=== PATIENT | female | born 1970 | race Caucasian/White ===

== ENCOUNTER 2023-04-01 06:10 | Day surgery (SDC) | payer OTHER, SELFPAY ==
--- NOTE | 2023-03-31 11:58 | WPDANESEPPF ---
Anes - Initial Pre Proc Eval Procedure: Operation Date: 04/01/23 07:30 Proposed Procedures p Bilateral Breast Augmentation Mammoplasty - David Sorto MD Date/Time: 03/31/23 11:58 Surgeon: David Sorto MD Pre Op Diagnosis: Micromastia Patient Data Age: 52 Gender: F Height: 1.63 m Weight: 54.5 kg Allergies Allergy/AdvReac Type Severity Reaction Status Date / Time No Known Allergies Allergy Verified 04/01/23 06:25 Home Medications Medication Instructions Recorded Confirmed Type dextroamphetamine-amphetamine 10 10 mg PO DAILY 03/15/23 04/01/23 History mg tablet norethindrone 1 mg-ethinyl 1 tablet PO DAILY 03/15/23 04/01/23 History estradiol 20 mcg (21)-iron 75 mg (7) tablet trazodone 100 mg tablet 100 mg PO HS 03/15/23 04/01/23 History venlafaxine 75 mg capsule,extended 75 mg PO DAILY 03/15/23 04/01/23 History release 24 hr docusate sodium 100 mg capsule 100 mg PO BID 04/01/23 04/01/23 History ondansetron HCl 4 mg tablet 4 mg PO Q6-8H 04/01/23 04/01/23 History oxycodone-acetaminophen 5 mg-325 1 tablet PO Q6-8H PRN Pain 04/01/23 04/01/23 History mg tablet Patient hx anesthesia problems: none Family hx anesthesia problems: none Results Review: All pre-operative results and documents have been reviewed as part of the pre-operative evaluation. [facility] Past Medical History Medical History (Updated 03/31/23 @ 11:58 by Jairo Palmer DO) ADHD Anxiety Depression Social History Social History Smoking status: Never smoker Second hand tobacco smoke exposure: No Alcohol intake: current Alcohol use details: nightly wine Substance use: never Substance use type: does not use Living arrangements: with family Spiritual care concerns: No Anes - Eval Final PreProcedure Day of Procedure 03/31/23 11:58 Patient weight: normal Heart: regular rate and rhythm Lungs: clear to auscultation Airway: Mallampati scale class II Neurological: alert and oriented Last oral intake: >/= 8 hours ASA classification: II Emergent: no Anesthetic plan: proceed Anesthesia type and monitoring: general LMA and standard monitoring Results Review: All pre-operative results and documents have been reviewed as part of the pre-operative evaluation. Informed Consent: The patient's anesthetic plan and its attendant risks and benefits were discussed with the patient/family/POA. Questions were solicited and answers provided to the satisfaction of the patient/family/POA.
[2023-04-01] VITALS (9 sets, daily range): BP systolic 107–131; BP diastolic 64–86; PULSE 70–98; RESP 12–16; TEMP 36.3–36.8; O2SAT 97–100
[2023-04-01] MEDS: LACTATED RINGERS 1,000 ML 30 ML IV CONT ×2 (06:53→08:36)
[2023-04-01] MEDS: SCOPOLAMINE 1.5 MG PATCH TRANSDERM (07:00)
--- NOTE | 2023-04-01 07:00 | WPDHPUPDATE1 ---
History and Physical Update Update Date/Time: 04/01/23 07:00 History and Physical has been reviewed, including an updated exam of the patient. There are NO changes in the patient's condition. Risks, benefits, and alternatives have been discussed and questions answered. Patient agrees to proceed with procedure.
--- NOTE | 2023-04-01 07:04 | SUR.PREOP ---
500cc fluid bolus given in pre-op per Dr. Macario anderson
--- NOTE | 2023-04-01 07:07 | W.PM.PROC2 ---
Procedure Note - Detailed Date of Procedure 04/01/23 Pre-op Diagnosis Micromastia Post-op Diagnosis Same Procedure Performed Bilateral Augmentation Mammaplasty Surgeon David Sorto MD Anesthesia General Findings Bilateral Lizy Saline implants 300cc filled to 330cc Right - REF# [id number] filled to 330cc SN [id number] Left - REF# [id number] filled to 330cc SN [id number] Description of Procedure She is here today for bilateral breast augmentation. Previously and again today the risks, benefits, alternatives were discussed in extensive detail. I wanted her to be very realistic about the risks involved as well as expectations. We discussed aftercare and what to monitor for. Made sure answered all of her questions to her satisfaction today and consent was obtained. Marked in the preoperative holding area with their verification. The patient was taken to the operating room placed supine on the operating table. Anesthesia was provided by anesthesiology. A surgical time-out was taken. We cleansed the skin and 1% lidocaine and 0.25% Marcaine with epinephrine was used anesthetize as a field block. She was prepped and draped in a standard sterile fashion. Tegaderm nipple Dickinson were placed. A 15 blade used to make an incision along the inframammary fold. Dissection was continued at 45 degree angle until the chest wall as identified. I incised the pectoralis major along its inferior border and completely released the inferior border leaving the medial border intact. I created a subpectoral pocket in the appropriate dimensions based on our preoperative planning for the implant. I then copiously irrigated with saline solution and verified a strict hemostasis. Next the use a triple antibiotic and Betadine containing solution to irrigate the pocket. I washed my gloves with the triple antibiotic and Betadine solution. We washed the implant immediately upon opening it with this solution and only opened it when we needed it. On the back table air was removed from the implant. Introduced into the pocket and filled with a saline fill kit to the volume above. Having verified positioning of the implant this was closed using 2-0 PDS followed by 3-0 Monocryl in a running subcuticular 4-0 Monocryl followed by tissue glue. Fluffs and surgical bra were placed. Patient was awoke and taken to PACU without difficulty. All instrument sponge counts were correct at the end of the case. Estimated Blood Loss 25 Drains No Packing No Pathology None sent Complications No immediate complications Condition Stable Disposition PACU
--- NOTE | 2023-04-01 07:10 | SUR.PREOP ---
Dr. Sorto at bedside to vel Pt. RN, Yadi and spouse at bedside during marking
[2023-04-01] MEDS: ceFAZolin SODIUM 2 GM/20 ML SW SYRINGE IV PUSH (07:27)
[2023-04-01] MEDS: TRANEXAMIC ACID 1,000 MG/10 ML AMPUL 1000 MG IV PUSH (07:30)
[2023-04-01] MEDS: NACL 0.9% IRRIG POUR BOTTLE 900 ML, GENTAMICIN SULFATE INJ 160 MG, ceFAZolin 2 GM, POVI... IRRIGATION (07:58)
[2023-04-01] MEDS: fentaNYL CITRATE INJ (*CRX) 100 MCG/2 ML VIAL 25 MCG IV PUSH ×4 (08:47→09:20)
[2023-04-01] MEDS: oxyCODONE HCL (*CRX) 5 MG TAB IR PO (10:10)
--- NOTE | 2023-04-01 13:54 | WPDANESPN ---
Anes - Prog Note Post-Op Date/Time: 04/01/23 13:54 Cardiovascular status: normal Respiratory status: normal Airway patency: baseline Mental status: baseline Post-Op hydration status: normal Vital Signs: Last Vital Signs Temp 36.3 C L 04/01/23 08:36 Pulse 74 04/01/23 10:10 Resp 16 04/01/23 10:10 BP 125/86 04/01/23 10:10 Pulse Ox 100 04/01/23 10:10 O2 Del Method Room Air 04/01/23 10:10 O2 Flow Rate 6 04/01/23 08:50 Pain Score (VAS): 2 I/O: Intake & Output 03/31/23 04/01/23 04/01/23 23:59 07:59 15:59 Intake Total 500 200 Balance 500 200 Post-procedural complaints: none Patient Feedback: Patient satisfied with anesthetic care. Other Findings: Patient vital signs back to baseline. Patient denies nausea and vomiting. Patient's pain under control. Patient OK for discharge.
== END 2023-04-01 11:05 | disposition home or self-care (01) ==
PROVIDERS: Visit Provider Surgery Plastic and Reconstructive Surgery
PROC: (CPT 19325; principal; 2023-04-01 07:30)
DX: N64.82 Hypoplasia of breast (principal)
CPT/HCPCS: 19325